=== PATIENT | female | born 1980 ===

== ENCOUNTER 2019-03-24 11:14 | Outpatient (REF) | payer MEDICAID, SELFPAY | END 2019-03-24 11:34 | LOC: NCHCN 11:14 | PROVIDERS: PCP Registered Nurse; Visit Provider Registered Nurse | DX: J02.9 Acute pharyngitis, unspecified (principal); R13.10 Dysphagia, unspecified | CPT/HCPCS: 84443 ==

== ENCOUNTER 2019-07-23 15:30 | Outpatient (REF) | payer MEDICAID, SELFPAY | END 2019-07-23 15:50 | LOC: NCHCN 15:30 | PROVIDERS: PCP Registered Nurse; Visit Provider Family Medicine | DX: R35.0 Frequency of micturition (principal) | CPT/HCPCS: 87086 ==

== ENCOUNTER 2020-10-16 10:35 | Outpatient (REF) | payer MEDICAID, SELFPAY ==
[2020-10-20 10:11] LABS: COVID-19 RT-PCR Result NEGATIVE (Negative)
== END 2020-10-16 10:55 ==
LOC: NCHCN 10:35
PROVIDERS: PCP Registered Nurse; Visit Provider Family Medicine
DX: J06.9 Acute upper respiratory infection, unspecified (principal)
CPT/HCPCS: U0003